=== PATIENT | male | born 1985 | race Asian ===

== ENCOUNTER 2022-10-09 10:16 | Observation (INO) | payer OTHER ==
[~2022-10-09] VITALS: Ht 188 cm; Wt 131.1 kg
[2022-10-09] VITALS (11 sets, daily range): BP systolic 121–144; BP diastolic 72–96; TEMP 98.6–103.1; Ht 188 cm; Wt 131.1 kg
[2022-10-09 11:44] LABS: PLATELET COUNT 223 K/uL (142-355)
[2022-10-09 11:48] LABS: POTASSIUM 4.2 mmol/L (3.6-5.2)
[2022-10-09 12:03] LABS: PARTIAL THROMBOPLASTIN TIME 24.2 SECONDS (24.5-33.6)
[2022-10-10] VITALS (7 sets, daily range): BP systolic 101–154; BP diastolic 56–93; TEMP 97.7–98.9
[2022-10-10 04:11] LABS: PLATELET COUNT 186 K/uL (142-355)
[2022-10-10 04:22] LABS: POTASSIUM 3.5 mmol/L (3.6-5.2)
[2022-10-11] VITALS: BP 118/63; TEMP 98.6
[2022-10-11 03:59] VITALS: BP 136/89; TEMP 99.8
[2022-10-11 08:00] VITALS: BP 143/93; TEMP 98.1
[2022-10-11 09:35] LABS: PLATELET COUNT 180 K/uL (142-355)
[2022-10-11 09:55] LABS: POTASSIUM 3.4 mmol/L (3.6-5.2)
[2022-10-11 12:00] VITALS: BP 122/78; TEMP 98.8
[2022-10-11 16:00] VITALS: BP 141/83; TEMP 98.3
[2022-10-11 20:00] VITALS: BP 137/84; TEMP 98.6
[2022-10-12 04:00] VITALS: BP 116/76; TEMP 98.6
[2022-10-12 07:28] VITALS: BP 142/85; TEMP 98.6
[2022-10-12] MEDS ORDERED: LINE1TAB PO (08:32)
[2022-10-12] MEDS ORDERED: CLINDAMYCIN HY300 MG PO (08:32)
[2022-10-12] MEDS ORDERED: HYDROCODONE BIT1 TA2 PO (08:34)
== END 2022-10-12 10:00 | disposition home or self-care (01) ==
LOC: ED 10:16 → MED/SURG 14:06
PROVIDERS: ADMIT Family Medicine; ATTEND Internal Medicine
DX: L03.116 Cellulitis of left lower limb (principal); E66.01 Morbid (severe) obesity due to excess calories; D72.828 Other elevated white blood cell count; R03.0 Elevated blood-pressure reading, without diagnosis of hypertension; Z68.37 Body mass index [BMI] 37.0-37.9, adult
CPT/HCPCS: 36415; 36600; 80053; 80202; 81002; 82805; 83036; 83605; 83735; 84550; 85027; 85379; 85610; 85730; 86140; 87040; 87635; 93005; 96360; 96361; 96365; 96366; 96367; 96372; 96374; 96375; 99220; 99284; G0378; J0696; J1200; J1650; J2270; J2405; J3370; U0003

== ENCOUNTER 2022-10-24 11:54 | Emergency (ER) | payer OTHER ==
[~2022-10-24] VITALS: Ht 188 cm; Wt 127.0 kg
[~2022-10-24 11:54] MED LIST: CLINDAMYCIN HY300 MG PO; HYDROCODONE BIT1 TA2 PO; LINE1TAB PO
[2022-10-24 11:55] VITALS: TEMP 99
[2022-10-24 13:22] VITALS: BP 160/94
== END 2022-10-24 13:22 | disposition home or self-care (01) ==
LOC: ED 11:54
DX: L03.116 Cellulitis of left lower limb (principal); I87.8 Other specified disorders of veins
CPT/HCPCS: 99282

== ENCOUNTER 2022-10-25 10:12 | Outpatient (CLI) | payer OTHER | END 2022-10-25 20:46 | disposition home or self-care (01) | LOC: US 10:12 | PROVIDERS: ATTEND Nurse Practitioner Primary Care | DX: I87.2 Venous insufficiency (chronic) (peripheral) (principal) ==

== ENCOUNTER 2022-11-01 14:48 | Emergency (ER) | payer OTHER ==
[~2022-11-01] VITALS: Ht 188 cm; Wt 125.2 kg
[2022-11-01 14:52] VITALS: BP 156/92; TEMP 98.4
[2022-11-01 15:38] LABS: PLATELET COUNT 273 K/uL (142-355)
[2022-11-01 15:58] LABS: POTASSIUM 3.6 mmol/L (3.6-5.2)
== END 2022-11-01 17:00 | disposition left against medical advice (07) ==
LOC: ED 14:48
PROVIDERS: Emergency Medicine Emergency Medical Services
DX: S29.8XXA Other specified injuries of thorax, initial encounter (principal); V89.2XXA Person injured in unspecified motor-vehicle accident, traffic, initial encounter; Y92.89 Other specified places as the place of occurrence of the external cause; Z53.29 Procedure and treatment not carried out because of patient's decision for other reasons
CPT/HCPCS: 80053; 84484; 85027; 93005; 96360; 96361; 99284

== ENCOUNTER 2022-11-05 09:36 | Outpatient (CLI) | payer OTHER | END 2022-11-05 19:13 | disposition home or self-care (01) | LOC: RAD 09:36 | PROVIDERS: ATTEND Nurse Practitioner Primary Care | DX: R07.89 Other chest pain (principal) ==

== ENCOUNTER 2022-11-17 09:37 | Outpatient (CLI) | payer OTHER | END 2022-11-17 19:19 | disposition home or self-care (01) | LOC: CT 09:37 | PROVIDERS: ATTEND Nurse Practitioner Primary Care | DX: T14.90XA Injury, unspecified, initial encounter (principal); Y92.89 Other specified places as the place of occurrence of the external cause; R07.89 Other chest pain ==